=== PATIENT | female | born 1960 | race Hispanic/Latino ===

== ENCOUNTER 2021-05-02 06:29 | Day surgery (SDC) | payer OTHER ==
[2021-04-27 13:34] LABS: CREATININE 0.9 mg/dL (0.5-1.5); POTASSIUM 4.3 mmol/L (3.5-5.1)
[2021-05-01 10:12] VITALS: BP 138/74
[~2021-05-02] VITALS: Ht 167.6 cm; Wt 75.0 kg
[2021-05-02] VITALS (18 sets, daily range): BP systolic 99–145; BP diastolic 55–74
[~2021-05-02 06:29] MED LIST: AEC81 PO; AMLO-257 PO; BUDE0.5A3 IH; DULO60CA64 PO; ERGOCALCIFEROL PO; HYDR50TA PO; LOSA50TA64 PO; METF-444 PO; METO25TA6 PO; OMEP40CA21 PO; PRAV20TA4 PO
[2021-05-02] MEDS ORDERED: 0.9%NACL 1000ML 1,000 ML IV ONE (06:49)
[2021-05-02] MEDS ORDERED: EPINEPHRINE 1 MG/ML 30ML VIAL IJ ONE (06:59)
[2021-05-02] MEDS ORDERED: PROPOFOL 10 MG/ML 20ML VIAL IV ONE (07:26)
[2021-05-02] MEDS ORDERED: MIDAZOLAM HCL 1 MG/ML 2ML VIAL ONE (07:26)
[2021-05-02] MEDS ORDERED: SUCCINYLCHOLINE CHLORIDE 20 MG/ML 10 ML VIAL ONE (07:26)
[2021-05-02] MEDS ORDERED: FENTANYL CITRATE PF 50 MCG/1 ML 2ML VIAL ONE (07:27)
[2021-05-02] MEDS ORDERED: ROCURONIUM 10MG/1ML SYR 10 MG/ML ML ONE (07:29)
[2021-05-02] MEDS ORDERED: LIDOCAINE HCL 4% LTA SOL 4 ML VIAL ONE (07:32)
[2021-05-02] MEDS ORDERED: DEXAMETHASONE SOD PHOSPHATE 10MG/ML 1ML VIAL ONE (07:47)
[2021-05-02] MEDS ORDERED: MEPERIDINE-PF 25 MG/ML SYG ONE (08:11)
== END 2021-05-02 10:40 | disposition home or self-care (01) ==
LOC: DAH 06:29
PROVIDERS: ATTEND Otolaryngology Plastic Surgery within the Head & Neck
DX: R49.0 Dysphonia (principal); Z20.822 Contact with and (suspected) exposure to COVID-19; J38.01 Paralysis of vocal cords and larynx, unilateral; I10 Essential (primary) hypertension; E11.9 Type 2 diabetes mellitus without complications; F41.9 Anxiety disorder, unspecified; Z88.0 Allergy status to penicillin; Z95.0 Presence of cardiac pacemaker; Z86.16 Personal history of COVID-19; Z79.899 Other long term (current) drug therapy; Z98.890 Other specified postprocedural states
CPT/HCPCS: 31535; 36415; 80048; 82948 ×2; 87635; A4215; A4221; A4222; A4223; A4663; A6260; C9803; J0171; J0330; J1100; J2175; J2250; J2704; J3010; J7030

== ENCOUNTER 2022-01-23 06:10 | Day surgery (SDC) | payer OTHER ==
[2022-01-22 09:01] VITALS: BP 139/71
[2022-01-23] VITALS (19 sets, daily range): BP systolic 118–152; BP diastolic 63–76
[~2022-01-23] VITALS: Ht 162.6 cm; Wt 76.7 kg
[~2022-01-23 06:10] MED LIST changes: -BUDE0.5A3 IH; -HYDR50TA PO; +MONT-39 PO; -PRAV20TA4 PO; +PRED5TAB PO; +ROSU20TA31 PO; +SEMA1PEN3 SQ
[2022-01-23] MEDS ORDERED: 0.9%NACL 1000ML 1,000 ML IV ONE (07:09)
[2022-01-23 07:43] LABS: CREATININE 0.8 mg/dL (0.5-1.5); POTASSIUM 3.8 mmol/L (3.5-5.1)
[2022-01-23] MEDS ORDERED: EPINEPHRINE 1 MG/ML 30ML VIAL IJ ONE (07:46)
[2022-01-23] MEDS ORDERED: ONDANSETRON 4MG INJ ONE (09:30)
[2022-01-23] MEDS ORDERED: MEPERIDINE-PF 25 MG/ML SYG ONE (09:31)
[2022-01-23] MEDS ORDERED: NALOXONE HCL 0.4 MG/1 ML ML IVP PRN (10:00)
[2022-01-23] MEDS ORDERED: RACEPINEPHRINE HCL 2.25% 0.5 ML NEB SOLN NEB PRN (10:00)
[2022-01-23] MEDS ORDERED: METOCLOPRAMIDE 10 MG/2 ML VIAL IVP PRN (10:00)
[2022-01-23] MEDS ORDERED: FENTANYL CITRATE PF 50 MCG/1 ML 2ML VIAL IVP PRN (10:00)
[2022-01-23] MEDS ORDERED: IPRATROPIUM/ALBUTEROL SULFATE 3 ML SOLUTION IH PRN (10:00)
[2022-01-23] MEDS ORDERED: MEPERIDINE-PF 25 MG/ML SYG IVP PRN (10:00)
[2022-01-23] MEDS ORDERED: PROMETHAZINE HCL 25 MG/ML 1ML AMPULE IM PRN (10:00)
[2022-01-23] MEDS ORDERED: ONDANSETRON 4MG INJ IVP PRN (10:00)
== END 2022-01-23 10:25 | disposition home or self-care (01) ==
LOC: DAH 06:10
PROVIDERS: ATTEND Otolaryngology Plastic Surgery within the Head & Neck
DX: J38.2 Nodules of vocal cords (principal); R49.0 Dysphonia; J38.6 Stenosis of larynx; Z20.822 Contact with and (suspected) exposure to COVID-19
CPT/HCPCS: 87426; 31536; 80048; 82948 ×2; 36415; 88305; A6260; A4663; J7030; J0171; J2405; J2175; A4215; A4223; A4222; A4221